=== PATIENT | female | born 2000 | race Two or more races ===

== ENCOUNTER 2025-01-08 13:53 | Outpatient (CLI) | payer OTHER | END 2025-01-08 14:06 | disposition home or self-care (01) | LOC: SONOGRAMA 13:53 | PROVIDERS: ATTEND Student in an Organized Health Care Education/Training Program | DX: R10.2 Pelvic and perineal pain (principal) ==

== ENCOUNTER 2025-01-21 11:22 | Day surgery (SDC) | payer OTHER ==
[2025-01-17 09:41] LABS: HEMATOCRIT 34.8 % (36.0-45.00); HEMOGLOBIN 11.2 g/dL (12.0-15.00); MEAN CELL VOLUME 78.3 fL (80.00-100.00); MEAN CORPUSCULAR HEMOGLOBIN 25.3 pg (27.00-32.0); MEAN CORPUSCULAR HGB CONC 32.3 g/dl (32.0-36.0); PLATELET COUNT 349 K/uL (150-450); RED BLOOD COUNT 4.45 M/uL (4.00-6.00); RED CELL DISTRIBUTION WIDTH 17.5 % (11.5-14.5)
[2025-01-17 09:54] LABS: PH,URINE 6.5 (5.0-8.0); URINE APPEARANCE Clear; URINE BILIRRUBIN Negative (NEGATIVE); URINE BLOOD Negative; URINE COLOR Yellow; URINE GLUCOSE Negative (NEGATIVE); URINE KETONE Negative (NEGATIVE); URINE LEUKOCYTE Negative; URINE NITRATE Negative; URINE PROTEIN Negative (NEGATIVE); URINE UROBILINOGEN 0.2 E.U./dl
[2025-01-17 10:01] LABS: URINE RBC 19.2 uL (0.0-20.8); URINE WBC 6.1 uL (0.0-23.2)
[2025-01-17 10:16] LABS: INR 1.09; PARTIAL THROMBOPLASTIN TIME 31.9 SECONDS (22.0-34.0); PROTHROMBIN TIME 11.8 SECONDS (9.0-11.5)
[2025-01-17 10:27] LABS: ALBUMIN 3.6 gm/dL (3.4-5.0); BILIRUBIN TOTAL 0.36 mg/dL (0.3-1.2); CALCIUM 9.2 mg/dL (8.5-10.1); CREATININE SERUM 0.56 mg/dL (0.55-1.02); GLOBULINA 4.3 G/DL (2.4-3.5); POTASSIUM 4.53 mEq/L (3.5-5.1); TOTAL PROTEIN 7.9 gm/dL (6.4-8.2)
[2025-01-17 10:33] LABS: URINE EPITHELIAL CELLS 1.1 uL (0.0-38.8)
[2025-01-21] MEDS ORDERED: POVIDONE-IODINE 118 ML BOTT TOP ONE (13:57)
[2025-01-21] MEDS ORDERED: PROMETHAZINE HCL 25 MG/ML AMPUL IV PRN (15:15)
[2025-01-21] MEDS ORDERED: MORPHINE SULFATE 4 MG/ML VIAL IV PRN (15:15)
== END 2025-01-21 20:20 | disposition home or self-care (01) ==
LOC: CIR.AMB 11:22
PROVIDERS: ATTEND Student in an Organized Health Care Education/Training Program
DX: N85.00 Endometrial hyperplasia, unspecified (principal); N93.8 Other specified abnormal uterine and vaginal bleeding; H52.209 Unspecified astigmatism, unspecified eye